=== PATIENT | male | born 1945 | race Caucasian/White ===

== ENCOUNTER 2024-02-09 07:51 | Inpatient (IN) | payer OTHER, SELFPAY ==
[2024-02-09] VITALS (12 sets, daily range): BP systolic 113–151; BP diastolic 56–102
[2024-02-09] MEDS: BRILINTA 180 MG PO (05:18)
--- NOTE | 2024-02-09 05:34 | ED.GENMED ---
History of Present Illness
General
Chief Complaint: Cardiac Symptoms
Source: patient
Time Seen by Provider: 02/09/24 05:24
History of Present Illness
History of Present Illness:
78-year-old male transferred from [facility] with a complaint of not feeling well and having chills. Patient was seen in the [facility] emergency department and it was quickly determined that he had an inferior ST elevation RI. I
received a phone call from Dr. Rajan Ypeez, the ER attending funeral location manager. He requested a transfer to [facility]. Patient refused to be transferred to [facility] stating that he did not prefer the care there and wanted to
come to [facility]. I explained to the ER attending that we had a critical patient that was being transferred to the [facility] emergently and that we could only have the 1 patient at the time. He explained this to the patient stating that
there would be a delay in care if transferred to [place]. Patient absolutely wanted to come to [place] regardless of any delay for the [facility] [employer] table. I did speak with Dr. Sampson, interventionalists who was present in the emergency
department caring for the other critically ill patient that he was taken to the [facility]. He stated that as long as the patient knew that there could be a delay in care by coming here, we could except the patient. At this point I called [place] [facility] back and told them that as long as the patient knew that there could be a delay in care due to the [facility] being occupied by a critical patient, patient could be excepted here. casting technician informed me that the helicopter was there and patient
was already loaded on at that time. Patient arrived to the [facility] emergency department approximately 10 minutes later. He was in very stable condition, IV started patient on the pipe washer, he had an EKG that showed an inferior
wall STEMI. He was given aspirin, atropine, and heparin. We immediately gave him Brilinta and performed her own EKG. Our EKG did show slight elevations in the inferior leads which might of indicated reperfusion from the medications. Patient was
not complaining of chest pain. He did however have new bruises around his left eye and forehead indicative of a fall.
When the [facility] table was free, Dr. Sampson called for this patient. We did perform a CT of the head and route to the [facility] [employer]. For the duration of the time in the emergency department, patient had no complaints. Denied any chest pain.
Phy Exam
General Physical Exam
General Presentation: well appearing and no apparent distress
General Skin: warm and dry
General Habitus: normal
General Mental: alert
General Hydration: appears well hydrated
ENT Exam
ENT Exam: EOMI, pharynx normal, neck supple and normocephalic
Eye Exam
Eye Exam: PERRL, cornea clear and conjunctiva normal
Cardiovascular Exam
Cardiovascular Exam: regular rate/rhythm, no edema, no murmur and normal peripheral pulses
Pulmonary Exam
Pulmonary Exam: lungs clear, no respiratory distress, no rales, no crackles, no rhonchi, no stridor, no wheezing and no cough
Gastrointestinal Exam
Gastrointestinal Exam: normal bowel sounds, non tender, soft, no organomegaly, no pulsatile mass and non distended
Neurological Exam
Neurological Exam: alert, oriented x3, no motor deficits and speech normal
Musculoskeletal Exam
Musculoskeletal Exam: full ROM and no edema
Skin Exam
Skin Exam: normal color, warm/dry, no rash and no petechia
Psychiatric Exam
Psychiatric Exam: normal mood/affect
Course
Orders/Labs/Results
Orders:
Orders
02/09/24
Electrocardiogram (*1) Stat
Reason for Study: Chest Pain
Comment: DONE
02/09/24 05:14
Electrocardiogram (*1) Urgent
Reason for Study: Chest Pain
EKG- Treatment ONCE
EKG- Treatment ONCE
02/09/24 05:18
Ticagrelor [Brilinta] 180 mg PO ONCE ONE
02/09/24 05:24
CT Head W/o Iv Contrast Urgent
Comment:
Reason For Exam: fall
02/09/24 05:33
Complete Blood Count/With Diff Urgent
Comprehensive Metabolic Panel Urgent
PTT Urgent
Prothrombin Time Urgent
Troponin I Urgent
02/09/24 05:37
Heparin 1000 Units/500 ml [Heparin] 1,000 units in 500 ml .ROUTE .STK-MED
Heparin Sodium,Porcine/Ns/Pf [Heparin 2000 Units/1000 ml] 2,000 unit in 1,000 ml .ROUTE .STK-MED
Lidocaine HCl/Pf [Xylocaine-Mpf 1% Vial] 50 mg .ROUTE .STK-MED ONE
Nitroglycerin [Tridil] 1,500 mcg .ROUTE .STK-MED ONE
Verapamil Injectable [Isoptin/Verapamil Injection] 5 mg .ROUTE .STK-MED ONE
02/09/24 05:52
Fentanyl Citrate/Pf [Sublimaze] 100 mcg .ROUTE .STK-MED ONE
Heparin 10,000 units .ROUTE .STK-MED ONE
Midazolam HCl [Versed] 2 mg .ROUTE .STK-MED ONE
02/09/24 05:55
Lidocaine HCl/Pf [Xylocaine-Mpf 1% Vial] 50 mg .ROUTE .STK-MED ONE
02/09/24 Breakfast
Cholesterol Lowering
At Your Request: Limited Participation
Cholesterol Lowering: Sodium, 2 Gram
02/09/24 06:38
Phenylephrine HCl/0.9% NaCl [Andrey-Synephrine] 1,000 mcg .ROUTE .STK-MED ONE
02/09/24 07:12
CARDIAC REHAB CONSULT Routine
Co-Sign Provider:
Type of Cardiac Rehab Referral: Outpatient
Diagnosis: STEMI
Date of Diagnosis/Surgery: 02-08
Referring Provider: Bebo Sampson
If not attending cardiac rehab at [place], will attend at: [facility]
Acetaminophen [Tylenol] 650 mg PO Q4HPRN PRN
Femoral Artery Hemostasis Method As Directed
Procedure performed:: Percutaneous Coronary Int
Type of femoral hemostasis method used:: Internal Closure Device
Duration of bedrest (hours):: 3
Call provider if:: hematoma present after hemostasis achieved
02/09/24 07:13
DX Deep Vein Thrombosis Video Routine
02/09/24 07:40
Admit Patient As Directed
Co-Sign Provider:
Level of Care: Inpatient admission
Assign to:: IVU
Physician / Group: michellera
Diagnosis: Inferior STEMI
Reason for Hospitalization: Inferior STEMI
Expected length of stay greater than two midnights?: Yes
ELOS- Estimated Length of Stay in days: 3
I certify the patient meets the requirements for IP care: Yes
PRN Pain Medication Management As Directed
May give lesser potent ordered pain med per pt: Yes
preference::
Protocol:: Medication orders for pain may be administered in a
manner that supports deferring to patient preference
when the pt is:
- Requesting an ordered lesser potent pain medication.
Least to most potent pain medications are defined
as: acetaminophen < NSAID < tramadol < opioids
(morphine, oxycodone, hydromorphone).
- Requesting a lesser dose of the same medication IF
ORDERED.
- Requesting a less intrusive route of administration
if both routes are prescribed by the provider (PO <
IV).
02/09/24 08:30
Pantoprazole [Protonix] 40 mg PO DAILY
02/09/24 09:00
0.9% Sodium Chloride 1000 ml [Nss] 1,000 ml IV PER PROTOCOL
Infusion rate in mL/kg/hr:: 1.5
Infusion rate in mL/hr:: 140
Duration of infusion (hours):: 5
02/09/24 11:55
Glycohemoglobin (HgbA1c) IN AM
02/09/24 18:00
Atorvastatin [Lipitor] 40 mg PO QPM
Enoxaparin Sodium [Lovenox] 40 mg SC QPM
02/09/24 20:00
Metoprolol [Lopressor] 12.5 mg PO BID
Ticagrelor [Brilinta] 90 mg PO BID
02/10/24 06:00
Echo 2D MMode Color/Doppler IN AM
Reason for Study: stemi
Cardiology Consult: Abdirashid Sampson
02/10/24 06:08
Basic Metabolic Panel IN AM
Cardiovascular Evaluation IN AM
Complete Blood Count/No Diff IN AM
02/10/24 08:00
Aspirin Chewable [Low Strength Aspirin] 81 mg PO DAILY
Abnormal Lab Results
02/09/24 02/09/24
05:33 06:16
Absolute Neuts (auto) 7.6 H 10^3/uL
(1.4-6.5)
Lymphocytes % 17.0 L %
(20.5-51.1)
APTT 117.9 H Sec
(23.4-35.0)
Chloride 108 H mmol/L
(98-107)
BUN 24 H mg/dl
(9-20)
Glucose 140 H mg/dl
(70-99)
POC ACT Low Range 369 H Seconds
(116-155)
02/09/24 05:33
02/09/24 05:33
Vital Signs
Initial and Last Documented VS:
Initial Vital Signs
Temp Pulse Resp BP Pulse Ox
97.6 F 83 20 127/71 99
02/09/24 05:17 02/09/24 05:17 02/09/24 05:17 02/09/24 05:17 02/09/24 05:17
Last Documented Vital Signs
Temp Pulse Resp BP Pulse Ox
97.5 F 60 17 141/79 96
02/10/24 22:34 02/11/24 05:30 02/10/24 22:34 02/11/24 04:33 02/10/24 22:34
*EKG
Interpretation: abnormal
Comparison EKG: changes noted
Heart Rate: 76
Rate: normal
Rhythm: sinus and sinus arrhythmia
Ischemia: non-specific ST changes
*Cutting And Splicing Supervisor Interpretation
Rate: normal
Interpretation: normal
Heart Rate: 64
Rhythm: sinus and sinus arrhythmia
*Critical Care Note
Total Time (30-74mins, 75-104mins- exclusive of procedures): 35
comment:
Critical care statement: A total of 35 minutes of critical care time was provided for this patient. This time is separate from time utilized to perform the aforementioned documented procedures. Aggregate critical care time includes only time
during which I was engaged in work directly related to the patient's care, as described above, whether at the bedside or elsewhere in the Emergency Department.
Update Note
Update Note:
CT head
IMPRESSION:
Hyperdense sellar/pituitary lesion measuring up to 11 mm (205/18). Proteinaceous or hemorrhagic debris within a cystic pituitary lesion most likely. Correlate with endocrine function and consider follow-up pituitary protocol MRI of the brain.
No mass effect, shift of midline structures or hydrocephalus
Chronic white matter changes
No acute osseous abnormality
Discussed with Dr. Sandra at 6:03 AM ET
ED Attending Note
-
Portions of this chart may have been created with voice recognition software.� Occasional wrong word or��sound alike� substitutions may have occurred due to the inherent limitations of voice recognition software.
Discharge Plan
Departure
Patient Disposition: [facility]
Admit to: IVU
Presentation/result/management discussed w/ accepting MD/DO: Adrián
Discharge Problem:
STEMI (ST elevation myocardial infarction)
Interventions
Interventions:
*Risk Screen - Suicide Last Done: 02/09/24 05:17
*General Assessment Last Done: 02/09/24 05:17
*Neglect/Abuse Screening Last Done: 02/09/24 05:17
ED- Fall Risk Assessment Last Done: 02/09/24 05:27
*ED COVID-19 Vaccine History Last Done: 02/09/24 05:23
*Nursing Disposition Last Done: 02/09/24 05:34
ED- Pulmonary Assessment Last Done: 02/09/24 05:27
ED- Cardiac Assessment Last Done: 02/09/24 05:27
Discharge Date and Time
Discharge Date/Time: 02/09/24 05:35
[2024-02-09 05:51] LABS: % Basophils 0.5 % (0-2); % Eosinophils 0.8 % (0-6); % Immature Granulocytes 0.4 % (0-0.5); % Monocytes 6.3 % (1.7-9.3); Absolute Basophils 0.1 10^3/uL (0-0.2); Absolute Eosinophils 0.1 10^3/uL (0-0.7); Absolute Lymphocytes 1.7 10^3/uL (1.2-3.4); Absolute Monocytes 0.6 10^3/uL (0.1-0.6); Absolute Neutrophils 7.6 10^3/uL (1.4-6.5); Hematocrit 42.4 % (39.0-52.0); Hemoglobin 14.4 g/dL (13.0-18.0); Mean Corpuscular Volume 88.3 fL (80.0-94.0); Mean Platelet Volume 9.7 fL (7.4-10.4); Nucleated Red Blood Cells % 0 % (-); Platelet Count 191 10^3/uL (130-400); Red Cell Dist. Width 13.4 % (11.5-14.5); White Blood Cell Count 10.1 10^3/uL (4.8-10.8)
[2024-02-09 05:57] LABS: INR 1.03; PT 13.8 Sec (11.4-14.6)
[2024-02-09 05:59] LABS: APTT 117.9 Sec (23.4-35.0)
[2024-02-09 06:14] LABS: ACT-LR - POC 145 Seconds (116-155)
[2024-02-09 06:16] LABS: Troponin I 0.026 ng/ml
[2024-02-09 06:26] LABS: ACT-LR - POC 369 Seconds (116-155)
[2024-02-09 06:37] LABS: ALT (SGPT) 17 U/L (0-50); AST (SGOT) 26 U/L (17-59); Alkaline Phosphatase 76 U/L (38-126); Blood Urea Nitrogen 24 mg/dl (9-20); Calcium 9.2 mg/dl (8.4-10.2); Carbon Dioxide 24 mmol/L (22-30); Chloride 108 mmol/L (98-107); Estimated Creatinine Clearance 58 ml/min; Glucose 140 mg/dl (70-99); Potassium 4.3 mmol/L (3.5-5.1); Sodium 141 mmol/L (135-145); Total Bilirubin 0.3 mg/dl (0.2-1.3); Total Protein 6.6 g/dl (6.3-8.2); eGFR > 60.00
--- NOTE | 2024-02-09 06:58 | ITS.CL.CATH ---
[facility] - Catheterization
Cardiac Catheterization
Procedure Report:
CARDIAC CATHETERIZATION REPORT
Date of Procedure: 02/09/2024
Referring: Sergio Sandra DO ( ER)
Indication: Inferior STEMI-patient was transferred from [facility]. We were contacted as he requested transfer to [facility]. At the time, we were coming in for another emergency and advised that he be transported to
[facility] which had already been the recommendation from the ER at [facility]. The patient stated that he would prefer to than go to [facility]. There was some discussion of thrombolytic therapy but we felt he
could be transported to our ER and then quickly up to the [facility]. He was pain-free on arrival with markedly improved but not completely resolved inferior ST segment elevation
�
HEMODYNAMIC DATA
AO: 122/64
LV: 122/17
�
LEFT VENTRICULOGRAPHY: Mild inferior hypokinesis with EF 53%
�
CORONARY ANGIOGRAPHY
Dominance: Right
Left Main: Normal
LAD: 50-60% proximal LAD stenosis. There are tandem 60-70% and 50% mid LAD stenoses. The remainder of the LAD proper has no significant disease. The very large proximally arising first diagonal branch has a widely patent stent (TOSHIA 2010) which
extends to a bifurcation site. Both daughter branches are patent with the more proximal branch having 40% ostial stenosis. Of note, this branch vessel was compromised then rescued at the time of the original stent placement with balloon
angioplasty in 2010
Circumflex: Mild luminal irregularities
RCA: Patent mid RCA stent (TOSHIA 2010) with 20% in-stent stenosis. There is a 99% mid RCA lesion at the crux with SRIDHAR grade II flow distal to the stenosis. This is the culprit lesion.
Angioplasty: At the conclusion of the diagnostic study we proceeded with RCA intervention. Heparin was used for anticoagulation. An AR-1 guide catheter was used. A Hi-Torque floppy wire was easily passed through the lesion into the distal RCA.
Angioplasty with a 2.5 x 12 Euphora to 8 wendy was followed by placement of a 3.25 x 15 Xience V TOSHIA deployed at 14 wendy then postdilated with a 3.25 NC Euphora to 17 wendy. The final angiographic result was outstanding with no residual stenosis and
taoism of SRIDHAR grade III flow. There were no procedural complications.
�
Closure Device: 6 Turkish Angio-Seal RFA. 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
the ascending aorta next to impossible at that time.
�
Radiation (mGy): 484
DAP (cm2.Gy): 38.5
Fluoroscopy time: 7.4 minutes
�
CONCLUSIONS
1:�Acute inferior STEMI of 5 hours duration
2:�Mild inferior hypokinesis with EF 53%
3. Multivessel CAD as described. The previously placed stents in the mid RCA and first diagonal branch in 2011 remain patent
4. Successful stenting of 99% mid RCA stenosis with 3.25 x 15 Xience cuauhtemoc point TOSHIA with outstanding angiographic result
5. We will recommend staged IFR guided evaluation and possible treatment of the LAD disease
6. Continue DAPT for 12 months
7. 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 This will need outpatient follow-up. We will consult neurology to arrange
�
�
Copy to: Chely Yo MD, Floyd Vargas MD ([place], [place])
�
Abdirashid Sampson MD, [facility], [facility]
--- NOTE | 2024-02-09 07:41 | W.PN.UPDATE ---
Update Note
Progress Note Update
History and physical dictated. 78-year-old gentleman with known CAD status post two-vessel stenting (mid RCA, D1) in 2010 at [facility] developed chest discomfort with diaphoresis and shortness of breath at 1 AM which awoke him. Presented
to the emergency department [facility]. Initial ECG showed diagnostic inferior ST elevation. He was advised to be transported to [facility] for emergent catheterization and refused saying he would rather than go to
[facility]. He wanted transfer to [facility]. Our [facility] call team was on their way into the hospital for a different emergency and recommended to the [facility]ricks[facility] attending that he be transported to [place]. Patient again
refused and we offered transfer to the [facility] emergency department until we were able to get him up to the [facility]. Fortunately there was not a significant delay and he was brought to the [facility]. On arrival here he was pain-free
with markedly improved inferior ST elevation. Angiography showed the previously placed stents to be patent. The culprit for his infarction was a 99% mid RCA lesion with SRIDHAR grade II flow distally. Stenting was accomplished with a 3.25 x 15
Xience TOSHIA. There is possibly hemodynamically significant proximal and mid LAD disease which will need to be evaluated with IFR and this will be staged. Incidentally, he has a 11 mm pituitary mass which will need to be evaluated and possibly
treated. This was identified on the CT scan done because he fell at home before coming to the emergency department. Neurology will be consulted. DAPT will be continued.
--- NOTE | 2024-02-09 08:58 | W.PN.UPDATE ---
Addendum entered and electronically signed by Faisal Brantley MD 02/09/24 10:24:
I saw and examined the patient.
The SALES PROMOTION OFFICER's note was reviewed and I agree with the note.
Comment: Tele so far benign. Lungs clear. Cardiac rehab consulted.
Original Note:
Update Note
Progress Note Update
*This is the H&P Summary. Please see dictated H&P.*
IMPRESSION/PLAN: 78M with coronary artery disease (prior PCI to RCA and D1, 2010) and dyslipidemia who [facility] discomfort, diaphoresis, and shortness of breath which awoke him from a sleep. He
did suffer a fall at home prior to presenting to the ER. Initial ECG showed inferior ST elevation, he refused transfer to [facility] and preferred to come to .
Primary admission discharge rn: Dr. Chely Yo
Inferior STEMI
-Culprit was a 99% mid RCA lesion
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
-DAPT with aspirin and ticagrelor for 1 year with aspirin indefinitely
-Recommend staged IFR for LAD disease as this may be hemodynamically significant
-Fasting lipid panel in a.m.
-Trend troponin
Syncope
-He reports waking up on the floor but remembering to get up to walk to the bathroom
-Follow telemetry
Hyperglycemia, HgbA1c pending
Dyslipidemia, fasting lipid panel in a.m.
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
SUBJECTIVE:
Denies chest pain and shortness of breath.
DATA:
Cardiac catheterization, 02/19/2024:
CONCLUSIONS
1:�Acute inferior STEMI of 5 hours duration
2:�Mild inferior hypokinesis with EF 53%
3. Multivessel CAD as described. The previously placed stents in the mid RCA and first diagonal branch in 2011 remain patent
4. Successful stenting of 99% mid RCA stenosis with 3.25 x 15 Xience cuauhtemoc point TOSHIA with outstanding angiographic result
5. We will recommend staged IFR guided evaluation and possible treatment of the LAD disease
6. Continue DAPT for 12 months
7. 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 This will need outpatient follow-up. We will consult neurology to arrange
--- NOTE | 2024-02-09 10:18 | PTCARENOTE ---
received patient this am at change of shift s/p cath. right fem artery angio sealed, patient aware of BR for 3 hours. dsg. D/I, distal pulses by Doppler bilat. monitor placed NSR, VSS. no c/o CP, SOB or dizziness. patient did fall at home, patient
stated, 'I found myself on the floor', left eye area ecchymotic with goose egg. EKG obtained.
--- NOTE | 2024-02-09 10:48 | CM ---
Chart reviewed. Patient is independent of ADLS, lives alone in a 1 STH, 1 AJAY, 0 DME. Plan is for the patient to return home. CM to follow
--- NOTE | 2024-02-09 11:09 | CM ---
Pricing on Brilinta is $47 for a 30 day supply and $94 for a 90 day mail order. Brilinta is in stock at the patient's [facility]. I will place a free 30 day coupon in the patient's red discharge folder.
[2024-02-09] MEDS: COZAAR 25 MG PO (11:58)
[2024-02-09] MEDS: LOPRESSOR 12.5 MG PO ×2 (11:58→20:46)
[2024-02-09] MEDS: PROTONIX 40 MG PO (11:59)
--- NOTE | 2024-02-09 12:40 | PTCARENOTE ---
second troponin drawn 4.810 TT Abby SIMMONS.
[2024-02-09] MEDS: LIPITOR 40 MG PO (18:16)
[2024-02-09] MEDS: LOVENOX 40 MG SC (18:16)
--- NOTE | 2024-02-09 18:59 | PTCARENOTE ---
third troponin 11.7 and patient had 11 beats of Vtach, patient asymptomatic. TT Dr. Wright, aware.
[2024-02-09] MEDS: TUMS CHEWABLE TABLET 200 MG PO (19:33)
[2024-02-09] MEDS: BRILINTA 90 MG PO (20:47)
[2024-02-10] VITALS (7 sets, daily range): BP systolic 135–146; BP diastolic 74–84
--- NOTE | 2024-02-10 04:22 | PTCARENOTE ---
Pt SB on monitor, VSS Denies pain or SOB. Ambulates independently in the room.
[2024-02-10 06:46] LABS: Hematocrit 39.3 % (39.0-52.0); Hemoglobin 13.7 g/dL (13.0-18.0); Mean Corp Hgb Conc. 34.9 g/dL (33.0-37.0); Mean Corpuscular Hgb 30.4 pg (27.0-31.0); Mean Corpuscular Volume 87.3 fL (80.0-94.0); Mean Platelet Volume 10.1 fL (7.4-10.4); Platelet Count 189 10^3/uL (130-400); Red Cell Dist. Width 13.6 % (11.5-14.5)
[2024-02-10 07:25] LABS: Blood Urea Nitrogen 19 mg/dl (9-20); Calcium 9.6 mg/dl (8.4-10.2); Carbon Dioxide 26 mmol/L (22-30); Chloride 105 mmol/L (98-107); Estimated Creatinine Clearance 58 ml/min; Glucose 101 mg/dl (70-99); HDL Cholesterol 60 mg/dl; LDL Cholesterol, Calculated 184 mg/dl; Potassium 4.8 mmol/L (3.5-5.1); Sodium 141 mmol/L (135-145); Total Cholesterol 275 mg/dl (50-199); Triglyceride 156 mg/dl (10-149); Very Low Density Lipoprotein 31 mg/dl (0-30); eGFR > 60.00
--- NOTE | 2024-02-10 08:04 | CARDSERVLU ---
Echocardiogram with Lumason completed after protocol screening completed. Allergies verified.
Patent IV site: __existing 20 P LAC___
IV site flushed with 0.9% NaCl pre and post administration.
Diluted bolus method utilized to enhance visualization of ventricular mcdonald.
Total volume given: __5.5__ mL
Patient tolerated all procedures well without complications.
--- NOTE | 2024-02-10 08:15 | W.PN.CD ---
Today's Communication / Plan
-
Increase BB
Cath tomorrow
Impression / Plan
-
A: 78 yo male with history of CAD w/ RCA and diagonal stenting, HTN, and dyslipidemia, who presented as a transfer for STEMI.
Inferior STEMI s/p RCA stenting
- DAPT for 1 year
- high intensity statin
- cont metop
CAD
- residual LAD disease cath tomorrow
HTN
- controlled with metop and losartan
NSVT overnight
- cont to monitor tele, cont BB, cath tomorrow
Dyslipidemia
- atorva 40
Subjective: NAEO patietn feeling well
Physical Exam
Vital Signs/Labs
Vital Signs
Temp Pulse Resp BP Pulse Ox
97.6 F 62 16 135/79 98
02/10/24 08:05 02/10/24 08:05 02/10/24 08:05 02/10/24 08:05 02/10/24 08:05
02/09/24 02/10/24 02/11/24
06:59 06:59 06:59
Actual Weight 205 lb 11.06 oz
02/10/24 06:08
02/10/24 06:08
PT 13.8 Sec (11.4-14.6) 02/09/24 05:33
INR 1.03 02/09/24 05:33
APTT 117.9 Sec (23.4-35.0) H 02/09/24 05:33
Triglycerides 156 mg/dl (10-149) H 02/10/24 06:08
LDL Cholesterol, Calc 184 mg/dl 02/10/24 06:08
VLDL Cholesterol, Calc 31 mg/dl (0-30) H 02/10/24 06:08
HDL Cholesterol 60 mg/dl 02/10/24 06:08
LAB Results
02/09/24 02/09/24 02/09/24
05:33 07:15 11:55
Troponin I 0.026 Cancelled 4.810 H* D
02/09/24 02/09/24 02/09/24
13:15 17:19 19:15
Troponin I Cancelled 11.700 H* D Cancelled
02/09/24 02/10/24
23:37 06:08
Troponin I 11.600 H* 9.300 H*
Physical Exam
Constitutional: No acute distress
EENT: Anicteric
Cardiovascular: Rhythm & rate is regular and Pedal edema is absent
Respiratory: Respiratory effort normal and Lungs clear to auscul.
GI: Soft
Neuro/Psych: AO x 3
Data Reviewed
-
Date of Service: February 10, 2024
Medical Decision Making: Reviewed Test Results and Tests Ordered
EKG: Tracing Personally Visualized and interpreted (sr)
Echo: Ordered by me
Labs: Labs Reviewed by me
[2024-02-10] MEDS: BRILINTA 90 MG PO ×2 (08:56→20:55)
[2024-02-10] MEDS: LOPRESSOR 25 MG PO ×2 (08:56→20:55)
[2024-02-10] MEDS: LOW STRENGTH ASPIRIN 81 MG PO (08:56)
[2024-02-10] MEDS: PROTONIX 40 MG PO (08:56)
[2024-02-10] MEDS: LOPRESSOR PO (09:06)
--- NOTE | 2024-02-10 09:33 | PTCARENOTE ---
received patient this am, monitor on, NSR with PVC's, VSS. patient has no c/o, CP, SOB, dizziness. patient will be NPO after MN to go back to catheter finisher and inspector in am. right groin site dsg. D/I, distal pulse by Doppler. left eye remains ecchymotic from fall.
patient aware to use call hightower with assistance. Echo completed at bedside.
[2024-02-10 10:38] LABS: Glycohemoglobin (HgbA1c) 5.6 % (4.0-5.6)
[2024-02-10] MEDS: COZAAR 50 MG PO (10:48)
--- NOTE | 2024-02-10 11:02 | CM ---
Chart reviewed. Patient is independent of ADLS, lives alone in a 1 STH, 1 AJAY, 0 DME. Patient currently with no needs. CM to follow
[2024-02-10] MEDS: LIPITOR 80 MG PO (17:19)
[2024-02-10] MEDS: LOVENOX 40 MG SC (17:19)
[2024-02-11] VITALS (22 sets, daily range): BP systolic 79–183; BP diastolic 50–131
[2024-02-11 05:10] LABS: Hematocrit 40.2 % (39.0-52.0); Mean Corp Hgb Conc. 34.8 g/dL (33.0-37.0); Mean Corpuscular Hgb 30.6 pg (27.0-31.0); Mean Corpuscular Volume 87.8 fL (80.0-94.0); Mean Platelet Volume 9.8 fL (7.4-10.4); Platelet Count 174 10^3/uL (130-400); Red Blood Cell Count 4.58 10^6/uL (4.70-6.10); Red Cell Dist. Width 13.4 % (11.5-14.5); White Blood Cell Count 6.3 10^3/uL (4.8-10.8)
[2024-02-11 05:49] LABS: Blood Urea Nitrogen 21 mg/dl (9-20); Calcium 9.3 mg/dl (8.4-10.2); Carbon Dioxide 29 mmol/L (22-30); Chloride 104 mmol/L (98-107); Estimated Creatinine Clearance 53 ml/min; Glucose 99 mg/dl (70-99); Potassium 4.6 mmol/L (3.5-5.1); Sodium 141 mmol/L (135-145); eGFR > 60.00
--- NOTE | 2024-02-11 05:56 | PTCARENOTE ---
Pt SB on monitor. Denies pain or SOB. NPO for cath. pt encouraged to use call when OOB
[2024-02-11] MEDS: COZAAR 50 MG PO (09:02)
[2024-02-11] MEDS: BRILINTA 90 MG PO ×2 (09:02→21:00)
[2024-02-11] MEDS: PROTONIX 40 MG PO (09:03)
[2024-02-11] MEDS: FLUSH (NSS) 1 FLUSH IV (09:03)
[2024-02-11] MEDS: LOW STRENGTH ASPIRIN 81 MG PO (09:03)
[2024-02-11] MEDS: LOPRESSOR 25 MG PO ×2 (09:03→20:59)
--- NOTE | 2024-02-11 10:59 | PTCARENOTE ---
Received patient this morning ambulating in his room. Dressing right groin is dry and intact. He is aware that he is NPO x meds for cath later this morning. Denies any chest pain or sob.
--- NOTE | 2024-02-11 12:19 | W.PN.CD ---
Today's Communication / Plan
-
Repeat cardiac catheterization with iFR/ad hoc PCI of the LAD today.
Impression / Plan
-
Assessment/Plan: 78 yo male with history of HTN, HLD and CAD s/p PCI of RCA and diagonal transferred from [facility] with inferior STEMI, s/p successful PCI of the RCA (different site than prior PCI).
#Inferior STEMI
-Acute.
-S/P RCA PCI (Xience Skypoint 3.25 x 15 TOSHIA) with Dr. Sampson, 02/09/2024.
-Troponin peaked at 11.7.
-Echo shows preserved systolic function with inferior hypokinesis, LVEF 55-60%.
-DAPT with ASA and ticagrelor for 1 year.
-High dose, high intensity statin.
#CAD
-Chronic.
-50-60% pLAD, tandem 60-70% mLAD lesions.
-Plan for iFR evaluation, ad hoc PCI today.
#HTN
-Chronic, moderately elevated.
-Continue metoprolol. Losartan recently increased to 50 mg daily.
#NSVT overnight
-Acute, likely post [place] related.
-No further episodes on telemetry.
-Continue metoprolol.
#Dyslipidemia
-Chronic, stable.
-Total cholesterol = 275, LDL = 184, HDL = 60, Triglycerides = 156.
-Atorvastatin increased from 40 mg to 80 mg daily.
-Goal LDL < 55.
Subjective/Interval History:
No weights since 02/09/2024.
Hypertensive to 150's.
Feels well, though he did not sleep.
DATA:
CT Head, 02/09/2024:
IMPRESSION:
1. No acute intracranial abnormalities appreciated.
2. Mild atrophy and mild chronic small vessel change.
3. 11 mm hyperattenuating lesion within the sella, which may represent a pituitary mass. Please correlate with contrast-enhanced MRI of the brain as clinically appropriate.
Cardiac catheterization/PCI, 02/09/2024:
CORONARY ANGIOGRAPHY
Dominance: Right
Left Main: Normal
LAD: 50-60% proximal LAD stenosis. There are tandem 60-70% and 50% mid LAD stenoses. The remainder of the LAD proper has no significant disease. The very large proximally arising first diagonal branch has a widely patent stent (TOSHIA 2010) which
extends to a bifurcation site. Both daughter branches are patent with the more proximal branch having 40% ostial stenosis. Of note, this branch vessel was compromised then rescued at the time of the original stent placement with balloon
angioplasty in 2010
Circumflex: Mild luminal irregularities
RCA: Patent mid RCA stent (TOSHIA 2010) with 20% in-stent stenosis. There is a 99% mid RCA lesion at the crux with SRIDHAR grade II flow distal to the stenosis. This is the culprit lesion.
Transthoracic Echo, 02/10/2024:
CONCLUSIONS
LV ejection fraction is 55-60% by Mazariegos's method of discs.
Mild hypokinesis of the mid inferolateral wall.
Mild concentric left ventricular hypertrophy.
No significant valvular disease.
No prior study available for comparison.
Physical Exam
Vital Signs/Labs
Vital Signs
Temp Pulse Resp BP Pulse Ox
36.7 C 60 18 150/79 98
02/11/24 12:18 02/11/24 09:02 02/11/24 12:18 02/11/24 09:02 02/11/24 12:18
02/11/24 04:42
02/11/24 04:42
PT 13.8 Sec (11.4-14.6) 02/09/24 05:33
INR 1.03 02/09/24 05:33
APTT 117.9 Sec (23.4-35.0) H 02/09/24 05:33
Triglycerides 156 mg/dl (10-149) H 02/10/24 06:08
LDL Cholesterol, Calc 184 mg/dl 02/10/24 06:08
VLDL Cholesterol, Calc 31 mg/dl (0-30) H 02/10/24 06:08
HDL Cholesterol 60 mg/dl 02/10/24 06:08
LAB Results
02/09/24 02/09/24 02/09/24
05:33 07:15 11:55
Troponin I 0.026 Cancelled 4.810 H* D
02/09/24 02/09/24 02/09/24
13:15 17:19 19:15
Troponin I Cancelled 11.700 H* D Cancelled
02/09/24 02/10/24
23:37 06:08
Troponin I 11.600 H* 9.300 H*
Physical Exam
Constitutional: No acute distress and Comfortable
EENT: Anicteric and Moist mucous membranes
Cardiovascular: Rhythm & rate is regular, Pedal edema is absent, JVD pressure is normal, S1S2 is normal and Murmur/rub/gallop absent
Respiratory: Respiratory effort normal, Lungs clear to auscul., Wheeze Absent, Crackles Absent and Rhonchi Absent
GI: Soft, Distention absent, Flat, Non tender and Normal bowel sounds
Neuro/Psych: AO x 3
Other: Cath Site (Right common femoral access site is C/D/I.)
Data Reviewed
-
Date of Service: February 11, 2024
Medical Decision Making: Reviewed Test Results, Independent Historian Assessment and Test Interpretation
EKG: Tracing Personally Visualized and interpreted and Report Reviewed by me
Echo: Report Reviewed by me
X-Ray/CT/US/MRI/NUC/PET: Image Personally Visualized and interpreted and Report Reviewed by me
Medical Tests (PFT, Pathology etc): Image Personally Visualized and interpreted and Report Reviewed by me
Labs: Labs Reviewed by me
Old Records: Reviewed
--- NOTE | 2024-02-11 14:19 | PTCARENOTE ---
Patient taken to the porcelain enamel laborer with Dr. Breaux.
[2024-02-11 15:19] LABS: ACT-LR - POC 263 Seconds (116-155)
[2024-02-11 16:25] LABS: ACT-LR - POC 265 Seconds (116-155)
--- NOTE | 2024-02-11 16:37 | ITS.CL.ANGIO ---
Truss Builder - Angioplasty
Angioplasty
Procedure Report:
CARDIAC CATHETERIZATION REPORT
Date of Procedure: 02/11/2024
Referring: Abdirashid Sampson M.D.
INDICATION: Staged IFR with ad hoc PCI.
PROCEDURE:
1. Left-sided coronary angiography.
2. Successful IFR of the mid LAD.
3. Successful IVUS guided PCI of the mid LAD.
ACCESS:
6 Panamanian left common femoral artery using a modified Seldinger technique with a micropuncture kit under ultrasound guidance.
CATHETERS:
1. 6 Panamanian EBU 3.75 guiding catheter.
HEMODYNAMIC DATA
Weight (kg): 93.0
AO (s/d/x, mmHg): 150/78/105
LV (s/x mmHg): Not obtained.
LEFT VENTRICULOGRAPHY: Not performed.
CORONARY ANGIOGRAPHY
Dominance: Right.
Left Main: Normal size, bifurcating vessel. There is no coronary artery disease.
LAD: Large size vessel giving rise to 2 diagonals. There is a 50-60% lesion in the proximal vessel, immediately proximal to the origin of the first diagonal. There is an extremely tortuous segment of the mid LAD immediately after the first
diagonal. There are tandem 70% lesions in the mid LAD, the second lesion spanning the origin of D2. There is a patent stent in the proximal first diagonal.
Ramus: Congenitally absent.
Circumflex: Small size, nondominant vessel giving rise to a small marginal, essentially vestigial.
RCA: Not injected. Known to be a dominant vessel with prior PCI.
INTERVENTION(S)
1. Successful IFR of the mid LAD lesions demonstrating occlusive disease (IFR = 0.88).
2. Successful IVUS guided PCI of the tandem 70% mid LAD lesions (Medtronic [place] Arcadia 3.0 x 30 TOSHIA, postdilated with a 3.25 NC balloon) with reduction in stenosis to 0%, maintaining SRIDHAR-3 flow.
Narrative:
The decision was made to perform physiologic testing. The 6 [place] EBU 3.75 guiding catheter was advanced into the ascending aorta and seated in the left main coronary artery. Additional heparin was given to obtain an ACT greater than 250 seconds.
An iFR wire was zeroed outside of the body, then inserted into the guiding sheath. The wire was advanced and the transducer was normalized just outside of the guiding catheter tip. The wire was advanced into the mid LAD with significant difficulty
given the severe tortuosity of the mid LAD segment. Three iFR measurements were taken. The lesion was determined to be occlusive (0.88).
The decision was made to proceed with percutaneous coronary intervention. Additional heparin was given and a Power Turn Flex wire was advanced into the distal LAD using a microcatheter supported by a 6 Panamanian guide liner. The tandem, 70% mid LAD
lesions were predilated with a 2.0 x 12 semi-compliant balloon to 12 wendy.
The decision was made to perform intracoronary imaging. An IVUS catheter was advanced through the guiding catheter and into the ostium of the artery. Ring down was performed once the imaging crystal was no longer inside of the guiding catheter. The
IVUS catheter was advanced into the mid LAD, to a nondiseased segment. Intravascular ultrasound was performed in a retrograde fashion using a slow pullback. Intracoronary imaging demonstrated severe atherosclerotic disease in the mid LAD with
moderate disease in the proximal LAD. This also demonstrated a significant, aneurysmal segment at the severely tortuous mid LAD segment. Coronary luminal measurements were obtained.
The IVUS catheter was withdrawn and a 3.0 x 12 semicompliant balloon was advanced. The 70% mid LAD lesions were dilated to 12 wendy. We used the balloon to size the length of stent. The semi-compliant balloon was removed and a Medtronic [place]
Arcadia 3.0 x 30 drug-eluting stent was advanced. The stent was deployed at 12 atmospheres. The stent balloon was removed. A 3.25 x 12 noncompliant balloon was advanced, but would not advance into the stent given the tortuous nature of the vessel
and the angulation involved. Several maneuvers were attempted, including advancing the GuideLiner and biasing with the 2.0 12 NC balloon. Ultimately, the decision was made to readvanced the microcatheter into the distal LAD. With the
microcatheter in place, the power turn flex wire was withdrawn and a wiggle wire was advanced and deployed in the distal LAD. The microcatheter was withdrawn and the 2.0 x 12 semicompliant balloon was readvanced, this time passing into the stent
with the assistance of wire bias. The balloon was inflated and used to advance the GuideLiner into the stented segment. The semicompliant balloon was withdrawn and the 3.25 x 12 NC balloon was readvanced into the stent and the stent was
postdilated to 13 atmospheres at the distal margin, 14 wendy in the mid section and 16 wendy in the proximal margin.
The noncompliant balloon was withdrawn and IVUS was readvanced. IVUS confirmed good stent expansion and apposition. Care was taken to evaluate the proximal LAD lesion which did demonstrate atherosclerotic plaquing. The minimal luminal area was >6
mm�. The lesion itself sat immediately proximal to the bifurcation with a large diagonal. Given the nonocclusive measurement, the decision was made to manage this lesion medically.
Angiography was performed in orthogonal views, confirming good stent expansion and an excellent angiographic result. The coronary wire was withdrawn and the guide was disengaged from the artery. The catheter was removed over a standard J-wire.
Closure Device: 6 Pan[place]ian Angio-Seal for the left common femoral artery.
Radiation (mGy): 1326.46
DAP (cm2.Gy): 107.23
Fluoroscopy time (minutes): 27.9
Sedation time (minutes): 112
CONCLUSIONS
1. Right dominant circulation with a nonocclusive 50-60% proximal LAD lesion (MLA = 6.4 mm2) and occlusive, tandem 70% lesions in the mid LAD, after a severely tortuous segment (IFR = 0.88), status post successful IVUS guided PCI (Medtronic [place]
Arcadia 3.0 x 30 TOSHIA, postdilated with a 3.25 NC balloon) with reduction in stenosis to 0%, maintaining SRIDHAR-3 flow.
RECOMMENDATIONS:
1. Expectant management after cardiac catheterization via left common femoral approach.
2. Limited weight bearing for one week.
3. Maintain dual antiplatelet therapy with aspirin and ticagrelor for at least 12 months, followed by aspirin indefinitely.
4. Aggressive medical management of residual CAD, including proximal LAD disease.
5. Guideline directed medical therapy as hemodynamics will tolerate.
6. The patient has already been referred to cardiac rehab.
Copy to: Chely Yo M.D., Floyd Yanez M.D.
Daniel Breaux DO, FACC, FACP
--- NOTE | 2024-02-11 17:49 | PTCARENOTE ---
Received patient back from the manager cardiac cath at 1656 after stent placement to the LAD via left femoral artery. Dressing left groin is dry and intact with no signs of hematoma and palpable pedal pulse. Dressing from previous cath on right groin was
removed in the manager cardiac cath and is open to air, with no bleeding noted or signs of hematoma. Patient is lying flat in bed, reinforced post cath restrictions. Post EKG done, monitoring VS, call hightower in reach.
--- NOTE | 2024-02-11 17:54 | PTCARENOTE ---
Patient is due for lovenox at 1800, TT to Dr. Saeid kwon to give but later this evening. Will pass on to ceramic chemist to given with HS meds.
[2024-02-11] MEDS: LIPITOR 80 MG PO (18:13)
[2024-02-11 23:37] LABS: Glucose - Point of Care 122 mg/dl (70-99)
[2024-02-11] MEDS: LOVENOX SC (23:44)
[2024-02-11 23:47] LABS: Hematocrit 37.2 % (39.0-52.0)
[2024-02-12] VITALS (31 sets, daily range): BP systolic 91–130; BP diastolic 42–80
--- NOTE | 2024-02-12 01:26 | PTCARENOTE ---
Pt got OOB first time post cath without nurse supervision. That time pt accidently cut his penis with urinal, disconnected his IV fluids and heart monitor. After Pt returned back to bed safely with assistance, the nurse noted oozing blood on left
groin dsg and also bleeding penis. Also, Pt c/o mild discomfort on left groin with palpation. BP 86/50. CVPA made aware. NS 500ml bolus, CBS, and CT abd STAT ordered.
[2024-02-12] MEDS: NSS 500 IV (01:48)
--- NOTE | 2024-02-12 02:08 | W.PN.UPDATE ---
Update Note
Progress Note Update
-came in urgently @ 23:45 to evaluate pt for hypotension, sbp high 70s-80s. BP 82/51, hr 55 sinus марина. Pt is s/p cath via L SENIOR INFORMATICA ETL DEVELOPER on 02/10. Groin is soft, nontender, no palpable hematoma. Pt c/o fullness in L lower abdomen/flank area with some
tenderness, no bruising. He then became diaphoretic, c/o lightheadedness and became nearsyncopal. NSS 500 cc started urgently. Pt was put in Trendelenburg. Pt did not pass out. BP improved to 111/56 after IVF and pt was feeling better. Of note, he
is also oozing blood from penis d/t injury from urinal earlier.
-hg came back 13 (14 on 02/10 and 13.7 on 02/09)
-discussed with Dr. Ortega- ordered chest/abdom/pelvis cta. Study showed no active bleeding
-pt was feeling better overall, stable VS, A&O x4. Will continue to monitor
[2024-02-12] MEDS: LOW STRENGTH ASPIRIN 81 MG PO (08:29)
[2024-02-12] MEDS: BRILINTA 90 MG PO (08:29)
[2024-02-12] MEDS: PROTONIX 40 MG PO (08:29)
[2024-02-12] MEDS: LOPRESSOR 25 MG PO (08:36)
[2024-02-12 08:48] LABS: ACT-LR - POC > 397 Seconds (116-155)
--- NOTE | 2024-02-12 09:15 | W.PN.CARDCBS ---
Addendum entered and electronically signed by Daniel Breaux DO 02/12/24 11:43:
Attestation: I have seen and examined the patient. I can confirm Ms. Ramirez's findings and I agree with her assessment and plan as documented.
Overnight, the patient suffered from an episode of hypotension and diaphoresis. There was some mild discomfort at his left femoral access site. Furthermore, he suffered a small laceration on his penis while using the urinal. This led to
significant blood loss. It was difficult to distinguish if blood was also coming from the left femoral access area, combined with his hemodynamics, he was sent for CTA to evaluate for retroperitoneal hemorrhage. CTA was negative for RPV but did
show some stranding consistent with localized blood loss from the prior cardiac catheterization. IV fluids were administered and the patient stabilized. This morning, he feels well.
On exam, his access site is clean, dry and intact.
His heart is regular rhythm with a normal rate.
Lungs are clear to auscultation bilaterally.
There is no peripheral edema.
Continue all current therapy including dual antiplatelet therapy.
Aggressive secondary prevention with high-dose, high potency statin, goal LDL <55.
Stable for outpatient follow-up. Discharge today.
Original Note:
Today's Communication / Plan
-
continue post MN care
oob ambulate
home later today
Impression / Plan
-
Assessment/Plan: 78 yo male with history of HTN, HLD and CAD s/p PCI of RCA and diagonal transferred from [facility] with inferior STEMI, s/p successful PCI of the RCA (different site than prior PCI).
#Inferior STEMI
-Acute.
-S/P RCA PCI (Xience Skypoint 3.25 x 15 TOSHIA) with Dr. Sampson, 02/09/2024.
-s/p PCI LAD (Medtronic Edgar [place] 3.0 x [address] TOSHIA) Dr. Breaux 02/11/24
-groin stable, hypotension o/n CTA no bleeding/extravasation
-Troponin peaked at 11.7.
-Echo shows preserved systolic function with inferior hypokinesis, LVEF 55-60%.
-DAPT with ASA and ticagrelor for 1 year.
-High dose, high intensity statin.
#CAD
-Chronic.
-50-60% pLAD, tandem 60-70% mLAD lesions.
-post PCI IFR positive LAD with IVUS 02/11/24
#HTN
-Chronic, moderately elevated.
-Continue metoprolol. Losartan recently increased to 50 mg daily hold this am, with low bp o/n
#NSVT
-Acute, likely post [place] related.
-No further episodes on telemetry.
-Continue metoprolol.
#Dyslipidemia
-Chronic, stable.
-Total cholesterol = 275, LDL = 184, HDL = 60, Triglycerides = 156.
-Atorvastatin increased from 40 mg to 80 mg daily.
-Goal LDL < 55.
Subjective/Interval History:
No weights since 02/09/2024.
Hypertensive to 150's.
Feels well, though he did not sleep.
DATA:
CT Head, 02/09/2024:
IMPRESSION:
1. No acute intracranial abnormalities appreciated.
2. Mild atrophy and mild chronic small vessel change.
3. 11 mm hyperattenuating lesion within the sella, which may represent a pituitary mass. Please correlate with contrast-enhanced MRI of the brain as clinically appropriate.
Cardiac catheterization/PCI, 02/09/2024:
CORONARY ANGIOGRAPHY
Dominance: Right
Left Main: Normal
LAD: 50-60% proximal LAD stenosis. There are tandem 60-70% and 50% mid LAD stenoses. The remainder of the LAD proper has no significant disease. The very large proximally arising first diagonal branch has a widely patent stent (TOSHIA 2010) which
extends to a bifurcation site. Both daughter branches are patent with the more proximal branch having 40% ostial stenosis. Of note, this branch vessel was compromised then rescued at the time of the original stent placement with balloon
angioplasty in 2010
Circumflex: Mild luminal irregularities
RCA: Patent mid RCA stent (TOSHIA 2010) with 20% in-stent stenosis. There is a 99% mid RCA lesion at the crux with SRIDHAR grade II flow distal to the stenosis. This is the culprit lesion.
Transthoracic Echo, 02/10/2024:
CONCLUSIONS
LV ejection fraction is 55-60% by Mazariegos's method of discs.
Mild hypokinesis of the mid inferolateral wall.
Mild concentric left ventricular hypertrophy.
No significant valvular disease.
No prior study available for comparison.
Cardiac cath/PCI 02/11/2024
1. Right dominant circulation with a nonocclusive 50-60% proximal LAD lesion (MLA = 6.4 mm2) and occlusive, tandem 70% lesions in the mid LAD, after a severely tortuous segment (IFR = 0.88), status post successful IVUS guided PCI (Medtronic Arcadia
[place] 3.0 x 30 TOSHIA, postdilated with a 3.25 NC balloon) with reduction in stenosis to 0%, maintaining SRIDHAR-3 flow.
Progress Note - Neurocritical Care Physician
Subjective
Date of Service: February 12, 2024
denies cp, sob
Objective
Labs:
02/11/24 23:35
02/11/24 04:42
Labs
Hgb 13.0 g/dL (13.0-18.0) 02/11/24 23:35
Hct 37.2 % (39.0-52.0) L 02/11/24 23:35
Plt Count 174 10^3/uL (130-400) 02/11/24 04:42
PT 13.8 Sec (11.4-14.6) 02/09/24 05:33
INR 1.03 02/09/24 05:33
APTT 117.9 Sec (23.4-35.0) H 02/09/24 05:33
Sodium 141 mmol/L (135-145) 02/11/24 04:42
Potassium 4.6 mmol/L (3.5-5.1) 02/11/24 04:42
BUN 21 mg/dl (9-20) H 02/11/24 04:42
Creatinine 1.2 mg/dL (0.7-1.3) 02/11/24 04:42
Glucose 99 mg/dl (70-99) 02/11/24 04:42
Troponins
02/09/24 02/09/24 02/09/24
11:55 17:19 23:37
Troponin I 4.810 H* D 11.700 H* D 11.600 H*
02/10/24
06:08
Troponin I 9.300 H*
Vital Signs and I&O:
Vital Signs
Temp Pulse Resp BP Pulse Ox
97.8 F 72 20 115/79 96
02/12/24 06:59 02/12/24 08:15 02/12/24 06:59 02/12/24 06:56 02/12/24 06:59
Vital Signs
Temp Pulse Resp BP Pulse Ox
97.8 F 72 20 115/79 96
02/12/24 06:59 02/12/24 08:15 02/12/24 06:59 02/12/24 06:56 02/12/24 06:59
Intake & Output
02/10/24 02/11/24 02/12/24 02/13/24
06:59 06:59 06:59 06:59
Intake Total 950 / 950 480 / 480 500 / 500
Balance 950 / 950 480 / 480 500 / 500
Physical Exam
Physical Exam
NAD< AOX3
S1, S2, RRR
CTAB, non labored
SNTND bsx4
L fem site c/d/i no HT, soft, mildly tender
[2024-02-12] MEDS: COZAAR 50 MG PO (09:30)
--- NOTE | 2024-02-12 11:32 | CM ---
Chart reviewed. Patient is independent of ADLS, lives alone in a 1 STH, 1STE, 0 DME. Patient to be discharged later today. Patient's brilinta is ready to be picked up at his [facility].
--- NOTE | 2024-02-12 14:56 | W.DS.TRANS ---
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
-
Discharge Instructions:
Discharge Diagnosis/Procedures STEMI, s/p angioplasty and stent to Right
Coronary artery (02/08), angioplasty and stent to
Left Anterior Descending artery (02/10)
Diet Low Cholesterol
Driving Restrictions No driving for 24 hours
Other Services Cardiac Rehab
Instructions:
Stand-Alone Forms: DC Instructions- Cath/EP Lab
Changes to Home Medications: Yes
Discharge Medications:
DC Medications w/original date entered in [email or web address]
losartan 50 mg tablet 50 mg PO DAILY Blood Pressure 02/09/24
metoprolol succinate 50 mg tablet,extended release 24 hr 50 mg PO DAILY Blood Pressure 02/09/24
ticagrelor 90 mg tablet (Brilinta) 90 mg PO BID #180 tabs 02/10/24
aspirin 81 mg chewable tablet 81 mg PO DAILY #1 tab 02/12/24
atorvastatin 80 mg tablet 80 mg PO QPM #90 tabs 02/12/24
nitroglycerin 0.4 mg sublingual tablet 0.4 mg sublingual [id number] PRN chest pain or SBP > 150 mmHg #25 tabs 02/12/24
Home Medication Changes
new to brilinta, nitro, atorvastatin, stopped plavix
Pending Results: No
== END 2024-02-12 13:14 | disposition home or self-care (01) | DRG 322 ==
LOC: IVU 07:51
PROVIDERS: Internal Medicine Cardiovascular Disease; Nurse Practitioner; Physician Assistant Medical; ADMITTING PHYSICIAN Internal Medicine Cardiovascular Disease; EMERGENCY PHYSICIAN Student in an Organized Health Care Education/Training Program; FAMILY PHYSICIAN Family Medicine
PROC: B215YZZ Fluoroscopy of Left Heart using Other Contrast (ICD-10-PCS; 2024-02-09)
PROC: B211YZZ Fluoroscopy of Multiple Coronary Arteries using Other Contrast (ICD-10-PCS; 2024-02-09)
PROC: 4A023N7 Measurement of Cardiac Sampling and Pressure, Left Heart, Percutaneous Approach (ICD-10-PCS; 2024-02-09)
PROC: 027034Z Dilation of Coronary Artery, One Artery with Drug-eluting Intraluminal Device, Percutaneous Approach (ICD-10-PCS; 2024-02-09)
PROC: B240ZZ3 Ultrasonography of Single Coronary Artery, Intravascular (ICD-10-PCS; 2024-02-11)
PROC: 4A033BC Measurement of Arterial Pressure, Coronary, Percutaneous Approach (ICD-10-PCS; 2024-02-11)
DX: I21.11 ST elevation (STEMI) myocardial infarction involving right coronary artery (principal); I47.29 Other ventricular tachycardia; I25.10 Atherosclerotic heart disease of native coronary artery without angina pectoris; E23.7 Disorder of pituitary gland, unspecified; E78.5 Hyperlipidemia, unspecified; I95.89 Other hypotension; S00.12XA Contusion of left eyelid and periocular area, initial encounter; S31.21XA Laceration without foreign body of penis, initial encounter; Y92.238 Other place in hospital as the place of occurrence of the external cause; W19.XXXA Unspecified fall, initial encounter; Z95.5 Presence of coronary angioplasty implant and graft
CPT/HCPCS: 37221; 70450; 71275; 74174; 80048; 80053; 80061; 82962; 83036; 84484; 85014; 85018; 85025; 85027; 85347; 85610; 85730; 86850; 86900; 86901; 92978; 93005; 93306; 93454; 93458; 99291; C1725; C1753; C1760; C1769; C1874; C1894; C9600; C9606; Q9950; Q9967

== ENCOUNTER 2024-02-17 09:47 | Emergency (ER) | payer OTHER, SELFPAY ==
[2024-02-17 09:53] VITALS: BP 160/85
[2024-02-17 10:49] VITALS: BMI 32.0
--- NOTE | 2024-02-17 11:01 | ED.GENMED ---
History of Present Illness
General
Chief Complaint: Post Operative Problem(s)
Time Seen by Provider: 02/17/24 10:37
History of Present Illness
History of Present Illness:
78-year-old male presents to the emergency department for evaluation of left groin pain and swelling. He underwent cardiac catheterization on 02 08 with stenting of the mid RCA and subsequent repeat catheterization on 02 10 with PCI to the LAD. The
left groin was the access point for the second catheterization. He is concerned because there is no such bruising or swelling to the right groin. Denies fevers or chills.
Review of Systems
Review of Systems
Allergies reviewed?: Yes
All Other Systems: ROS reviewed and negative except as documented in HPI and ROS
Phy Exam
Physical Exam
Physical Exam:
GEN: Well appearing, NAD, WDWN
HEENT: Oral mucosa moist, no scleral icterus
Cardiac: Regular rate
Lung: No respiratory distress, no tachypnea
MSK: No gross deformity or injuries. Diffuse ecchymosis and swelling to the left inguinal region at the site of the catheterization access sites, no pulsations noted, no similar bruising to the right
Skin: Good color, no pallor or jaundice, no rashes
Neuro: AO x3, moves all extremities freely
Psych: Calm, cooperative
Course
Orders/Labs/Results
Orders:
Orders
02/17/24 10:48
US Groin (vascular exam) LT Urgent
Comment:
Reason For Exam: swelling/bruising post cath, eval pseudoaneurysm
Vital Signs
Initial and Last Documented VS:
Initial Vital Signs
Temp Pulse Resp BP Pulse Ox
98.9 F 77 16 160/85 98
02/17/24 09:53 02/17/24 09:53 02/17/24 09:53 02/17/24 09:53 02/17/24 09:53
Last Documented Vital Signs
Temp Pulse Resp BP Pulse Ox
98.9 F 60 16 157/81 99
02/17/24 09:53 02/17/24 13:15 02/17/24 09:53 02/17/24 13:07 02/17/24 13:15
MDM/Problems Addressed
MDM/Problems Addressed:
Imaging negative pseudoaneurysm, likely post traumatic hematoma from cath, discussed supportive care
*Critical Care Note
Total Time (30-74mins, 75-104mins- exclusive of procedures): Not Applicable
ED Attending Note
-
Portions of this chart may have been created with voice recognition software.� Occasional wrong word or��sound alike� substitutions may have occurred due to the inherent limitations of voice recognition software.
Discharge Plan
Departure
Patient Disposition: Home (Routine Discharge)
Date of Disposition: 02/17/24
Time of Disposition: 13:26
Patient with high blood pressure during this ER visit?: No
Discharge Problem:
Groin hematoma
Instructions: Postoperative Pain (DC)
Prescriptions:
No Action
losartan 50 mg Tablet
50 mg PO DAILY
metoprolol succinate 50 mg Tablet Extended Release 24 Hr
50 mg PO DAILY
Brilinta 90 mg Tablet
90 mg PO BID Qty: 180 3RF
atorvastatin 80 mg Tablet
80 mg PO QPM Qty: 90 5RF
nitroglycerin 0.4 mg Tablet, Sublingual
0.4 mg sublingual [id number] PRN (Reason: chest pain or SBP > 150 mmHg) Qty: 25 5RF
aspirin 81 mg Tablet,Chewable
81 mg PO DAILY Qty: 1 0RF
Referrals:
UNKNOWN - PT DOES,NOT KNOW [Family Provider] -
Interventions
Interventions:
*Risk Screen - Suicide Last Done: 02/17/24 10:50
*General Assessment Last Done: 02/17/24 13:39
*Neglect/Abuse Screening Last Done: 02/17/24 10:50
*ED COVID-19 Vaccine History Last Done: 02/17/24 10:50
*Nursing Disposition Last Done: 02/17/24 13:39
ED-Skin Assessment Last Done: 02/17/24 13:00
Discharge Date and Time
Discharge Date/Time: 02/17/24 13:40
Print Language: IRANIAN
[2024-02-17 13:07] VITALS: BP 157/81
== END 2024-02-17 13:40 | disposition home or self-care (01) ==
LOC: EMR 09:47
PROVIDERS: EMERGENCY PHYSICIAN Emergency Medicine
DX: S30.1XXA Contusion of abdominal wall, initial encounter (principal); X58.XXXA Exposure to other specified factors, initial encounter; R10.32 Left lower quadrant pain; Z95.5 Presence of coronary angioplasty implant and graft
CPT/HCPCS: 99284; 93926

== ENCOUNTER 2024-04-30 08:53 | Emergency (ER) | payer OTHER, SELFPAY ==
[2024-04-30 08:59] VITALS: BP 162/94
--- NOTE | 2024-04-30 11:20 | ED.GENMED ---
History of Present Illness
General
Chief Complaint: Breathing Problem
Source: patient
Exam Limitations: none
Time Seen by Provider: 04/30/24 10:57
Nursing documentation reviewed up to this point in time: agreed with
History of Present Illness
History of Present Illness:
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
1. Two episodes of waking during this past night feeling like he is gasping for breath, does not feel SOB now and
2. Visual disturbance. Since DC 02/12/24 for [facility], whenever he is watching TV, if he tilts his head to left just a little, he sees a horizontal line across the screen as well as a diagonal line and sometimes they converge and separate again. He has
felt mildly nauseous and 'a little off' with his balance (recent head injury: when he had [facility], he has syncope and struck left side of face on floor)
Visual disturbance does not occur with right eye (covering left eye). It occurs in left eye when right eye covered and with both eyes open). Lines in vision are intermittent 'sometimes not there at all.'
Has had mild 2/10 general headache and soreness/pain about the left orbit (where he impacted the floor when he fell)
Past History
Past History
ED Past Medical History: HTN, Hypercholesterolemia, VA and Other (Multiple concussions)
ED Past Surgical History: Cardiac (Cardiac stents 2010 and 02/2024.) and Orthopedic
Social History
Tobacco: Non-smoker
Alcohol: None
Personal: Single
Living: alone
Review of Systems
Review of Systems
Allergies reviewed?: Yes
All Other Systems: ROS reviewed and negative except as documented in HPI and ROS
Constitutional: Denies fever or fatigue
Respiratory: Denies cough or trouble breathing (Had 2 episodes during the night where he will awaken gasping for breath.)
Cardiac: Denies chest pain, diaphoresis or palpitations
ABD/GI: Reports nausea (Mild nausea); Denies abdominal pain, vomiting or anorexia
: Denies dysuria, frequency or difficulty voiding
Musculoskeletal: Reports no symptoms
Skin: Reports no symptoms
Neurological: Reports headache (2/10 General); Denies dizzy, weakness or numbness
Phy Exam
Physical Exam
Physical Exam:
GENERAL: No acute distress. A&Ox3.
CONSTITUTIONAL: Afebrile.
EYES: clear, conjunctivae normal, good red reflex bilaterally, L pupil 3 mm, R pupil 2 mm, brisk. Visual acuity noted
ENMT: moist mucus membranes, Pharynx nl
RESPIRATORY: Regular respirations, nonlabored, lungs clear.
CARDIOVASCULAR: Regular rate and rhythm, no murmurs, no rubs.
GI: Soft, nontender, normal BS
MUSCULOSKELETAL: Moves with ease. Well perfused.
SKIN: Warm, dry, pink
PSYCH: Normal mood and affect. Well kept, interactive and appropriate
NEUROLOGIC: Awake, alert and oriented. Speech clear. CN 2-12 intact, finger to nose intact. Ambulating well with steady gait. No focal neurological deficits
Scores
Heart Failure Risk
Heart Failure Risk Score: Not Applicable
Course
Orders/Labs/Results
Orders:
Orders
04/30/24 09:04
Electrocardiogram (*1) Urgent
Reason for Study: Shortness of Breath
CT Head W/o Iv Contrast Urgent
Comment:
Reason For Exam: headache, blurry vision
04/30/24 09:05
EKG- Treatment ONCE
04/30/24 12:04
Visual Acuity- Treatment ONCE
04/30/24 12:11
COVID-19 Antigen Urgent
Source: Nasal Swab
Influenza A+B Rapid Molecular Urgent
CHINYERE Source: Nasal Swab
Specimen Description:
04/30/24 12:58
ACTH [Adrenocorticotropic Hormone] [S] Urgent
CRP [C-Reactive Protein] Urgent
Comprehensive Metabolic Panel Urgent
FSH Urgent
Free T4 Urgent
LH [Luteinizing Hormone] Urgent
Prolactin Urgent
TSH Reflex To Free T4 Urgent
04/30/24 13:01
NT-proBNP Urgent
Troponin I Urgent
04/30/24 13:41
Complete Blood Count/With Diff Urgent
ESR [Erythrocyte Sed Rate] Urgent
04/30/24 14:03
CR Chest - 2 Views Urgent
Comment:
Reason For Exam: episodic SOB
Abnormal Lab Results
04/30/24
12:58
Sodium 134 L mmol/L
(135-145)
Carbon Dioxide 21 L mmol/L
(22-30)
BUN 21 H mg/dl
(9-20)
TSH (Reflex) 4.69 H uIU/ml
(0.47-4.68)
FSH 38.3 H mIU/ml
(1.55-9.74)
Luteinizing Hormone 15.70 H mIU/ml
(1.24-7.80)
04/30/24 13:41
04/30/24 12:58
Vital Signs
Initial and Last Documented VS:
Initial Vital Signs
Temp Pulse Resp BP Pulse Ox
97.7 F 88 18 162/94 99
04/30/24 08:59 04/30/24 08:59 04/30/24 08:59 04/30/24 08:59 04/30/24 08:59
Last Documented Vital Signs
Temp Pulse Resp BP Pulse Ox
97.7 F 54 12 167/79 98
04/30/24 08:59 04/30/24 14:15 04/30/24 14:15 04/30/24 14:00 04/30/24 14:15
MDM/Problems Addressed
Differential Diagnosis Includes:
Brain bleed, tumor
CHF, VA
MDM/Problems Addressed:
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
1. Two episodes of waking during this past night feeling like he is gasping for breath, does not feel SOB now and
2. Visual disturbance. Since DC 02/12/24 for [facility], whenever he is watching TV, if he tilts his head to left just a little, he sees a horizontal line across the screen as well as a diagonal line and sometimes they converge and separate again. He has
felt mildly nauseous and 'a little off' with his balance (recent head injury: when he had [facility], he has syncope and struck left side of face on floor)
Visual disturbance does not occur with right eye (covering left eye). It occurs in left eye when right eye covered and with both eyes open). Lines in vision are intermittent 'sometimes not there at all.'
Has had mild 2/10 general headache and soreness/pain about the left orbit (where he impacted the floor when he fell)
Patient is afebrile, vital signs stable, NAD.
Neuro exam is unremarkable save for mildly unequal pupils which could be his baseline
12:15 PM:
Consulted neurology Dr. Giles who recommended lab work which is ordered
She also recommended admission, MRI this was discussed with patient.
Is refusing MRI as he is severely claustrophobic and will go to a place that has an open MRI, he states he knows of a place in this area
Dr. Giles notified, she states he can have labs and MRI as out pt and f/u with her. She has looked at the MRI and states nothing urgent. Out pt MRI request given, results to be sent to Dr. Giles.
2:00 p.m.
CBC normal
CMP no clinically significant abnormality
Troponin normal
BNP normal
TSH unremarkable
FSH elevated at 38.3
Luteinizing hormone elevated at 15.7
Prolactin normal
ACTH pending
COVID-negative
Flu negative
COVID-negative
2:30 PM:
Dr. Giles notified of all lab results, notified that ACTH takes 3-5 days to result. She states OK to discharge
Pt given written rx for MRI outpt with Dr. Giles's address to send results to.
*Critical Care Note
Total Time (30-74mins, 75-104mins- exclusive of procedures): Not Applicable
ED Attending Note
-
Portions of this chart may have been created with voice recognition software.� Occasional wrong word or��sound alike� substitutions may have occurred due to the inherent limitations of voice recognition software.
Discharge Plan
Departure
Patient Disposition: Home (Routine Discharge)
Date of Disposition: 04/30/24
Time of Disposition: 15:09
Patient with high blood pressure during this ER visit?: Yes
Condition: Good
Covid-19: Negative COVID-19
Discharge Problem:
Dyspnea, Monocular visual disturbance, Headache
Instructions: Shortness of Breath (Dyspnea) (DC), Head injury in adults, Headache in adults - ED discharge instructions
Prescriptions:
No Action
losartan 50 mg Tablet
50 mg PO DAILY
Brilinta 90 mg Tablet
90 mg PO BID Qty: 180 3RF
atorvastatin 80 mg Tablet
80 mg PO QPM Qty: 90 5RF
nitroglycerin 0.4 mg Tablet, Sublingual
0.4 mg sublingual [id number] PRN (Reason: chest pain or SBP > 150 mmHg) Qty: 25 5RF
aspirin 81 mg Tablet,Delayed Release (Dr/Ec)
81 mg PO BID
metoprolol succinate 25 mg Tablet Extended Release 24 Hr
25 mg PO BID
Referrals:
Floyd Vargas MD [Family Provider] -
Sylvia Giles MD [Active] - Next open appointment
Activity Restrictions/Additional Instructions:
As we discussed, get the MRI and call Dr. Giles's office today and make appointment for follow up. She feels there is nothing urgent that needs admission here now but she would like to discuss your lab results and MRI results . The final lab
result she is waiting for won't be done for 4-5 days.
There is nothing worrisome in your workup here today regarding you shortness of breath. No sign of heart attack, pneumonia, covid, flu or fluid on your lungs.
Return here immediately for loss of vision, difficulty walking straight, weakness, confusion, vomiting or feeling sicker in any way
Interventions
Interventions:
*Risk Screen - Suicide Last Done: 04/30/24 08:59
*General Assessment Last Done: 04/30/24 11:34
*Neglect/Abuse Screening Last Done: 04/30/24 08:59
ED- Fall Risk Assessment Last Done: 04/30/24 11:34
*ED COVID-19 Vaccine History Last Done: 04/30/24 11:34
*Nursing Disposition Last Done: 04/30/24 15:23
ED- Cardiac Assessment Last Done: 04/30/24 11:35
ED- Pulmonary Assessment Last Done: 04/30/24 11:35
Discharge Date and Time
Discharge Date/Time: 04/30/24 15:24
Print Language: SAMI
--- NOTE | 2024-04-30 11:32 | EDRN ---
Pt states he fell and hit his head a month ago and had a PA at same time. Pt states his vision is not right, when head in certain position he sees double, awakening also w/ SOB.
[2024-04-30 11:33] VITALS: BMI 32.3
[2024-04-30 11:42] VITALS: BP 179/93
[2024-04-30 12:00] VITALS: BP 173/99
--- NOTE | 2024-04-30 12:17 | EDRN ---
Pt OOB to BR at this time.
--- NOTE | 2024-04-30 12:18 | EDRN ---
Sedrick ACEVEDO in room w/pt. She just informed me pt will be admitted.
[2024-04-30 12:32] LABS: COVID-19 Antigen Negative (Negative)
[2024-04-30 13:25] LABS: ALT (SGPT) 30 U/L (0-50); AST (SGOT) 27 U/L (17-59); Albumin 4.6 g/dl (3.5-5.0); Alkaline Phosphatase 103 U/L (38-126); Blood Urea Nitrogen 21 mg/dl (9-20); Calcium 9.5 mg/dl (8.4-10.2); Carbon Dioxide 21 mmol/L (22-30); Chloride 106 mmol/L (98-107); Estimated Creatinine Clearance 69 ml/min; Glucose 94 mg/dl (70-99); Potassium 4.5 mmol/L (3.5-5.1); Sodium 134 mmol/L (135-145); Total Protein 7.2 g/dl (6.3-8.2); eGFR > 60.00
[2024-04-30 13:37] LABS: C-Reactive Protein < 5.00 mg/L (0.0-10.00)
[2024-04-30 13:41] LABS: NT-proBNP 316 pg/ml; Troponin I < 0.012 ng/ml
[2024-04-30 13:44] LABS: FSH 38.3 mIU/ml (1.55-9.74); Prolactin 9.2 ng/ml (3.7-17.9)
[2024-04-30 13:58] LABS: TSH Reflex To Free T4 4.69 uIU/ml (0.47-4.68)
[2024-04-30 14:00] VITALS: BP 167/79
[2024-04-30 14:05] LABS: % Basophils 0.7 % (0-2); % Eosinophils 2.9 % (0-6); % Immature Granulocytes 0.3 % (0-0.5); % Lymphocytes 27.2 % (20.5-51.1); % Neutrophils 60.9 % (42.2-75.2); Absolute Basophils 0.1 10^3/uL (0-0.2); Absolute Eosinophils 0.2 10^3/uL (0-0.7); Absolute Monocytes 0.6 10^3/uL (0.1-0.6); Absolute Neutrophils 4.6 10^3/uL (1.4-6.5); Hematocrit 42.1 % (39.0-52.0); Hemoglobin 14.6 g/dL (13.0-18.0); Mean Corp Hgb Conc. 34.7 g/dL (33.0-37.0); Mean Corpuscular Volume 86.4 fL (80.0-94.0); Mean Platelet Volume 9.4 fL (7.4-10.4); Nucleated Red Blood Cells % 0 % (-); Platelet Count 241 10^3/uL (130-400); Red Blood Cell Count 4.87 10^6/uL (4.70-6.10); Red Cell Dist. Width 13.1 % (11.5-14.5); White Blood Cell Count 7.5 10^3/uL (4.8-10.8)
[2024-04-30 14:23] LABS: Free T4 1.06 ng/dl (0.78-2.19)
--- NOTE | 2024-04-30 14:34 | EDRN ---
Pt stated to this RN that he does not wish to be admitted. He wants to follow up w/ neurology as outpatient and does not want an MRI here as it is not open enough as the one he usually goes to. This RN TT'd Sedrick ACEVEDO at this time.
[2024-04-30 15:27] LABS: Erythrocyte Sed Rate 9 mm/hour (0-20)
[2024-05-03 02:42] LABS: Adrenocorticotropic Hormone 16.9 pg/mL (7.2-63.3)
== END 2024-04-30 15:24 | disposition home or self-care (01) ==
LOC: EMR 08:53
PROVIDERS: Registered Nurse; EMERGENCY PHYSICIAN Emergency Medicine; FAMILY PHYSICIAN Family Medicine
DX: R51.9 Headache, unspecified (principal); H53.8 Other visual disturbances; R06.09 Other forms of dyspnea; I10 Essential (primary) hypertension; E78.00 Pure hypercholesterolemia, unspecified; Z11.52 Encounter for screening for COVID-19
CPT/HCPCS: 99285; 70450; 71046; 80053; 82024; 83001; 83002; 83880; 84146; 84439; 84443; 84484; 85025; 85652; 86140; 87502; 87811; 93005